=== PATIENT | female | born 1965 | race Caucasian/White ===

== ENCOUNTER 2017-09-25 15:53 | Observation (INO) | payer OTHER, BC ==
[~2017-09-25] VITALS: Ht 160 cm; Wt 112.3 kg
[~2017-09-25 15:53] MED LIST: ADVAIR 500/501 DISK IH; ALBUTEROL17 GM IH; ALBUTEROL2.5 MG/3 M IU; AMBIEN5 M1 PO; AMBIEN5 MG PO; ASPIRIN E.C.81 M1 PO; ASPIRIN325 MG PO; AVAPRO150 MG PO; Ambien PO; Ascorbic Acid,Ester- PO; BAYER CHILDREN'81 MG PO; CALCIUM600 MG PO; CELEBREX200 MG PO; CLARINEX5 MG PO; COUMADIN1 MG PO; CYANOCOBALAM1000 MCG SL; Coumadin,Jantoven PO; DESYREL100 MG PO; Desyrel PO; ERGOCALCIF50000 UNIT PO; FEOSOL325 MG PO; FLINTSTONES1 TABLET PO; GLUCOSAMINE 1,1 EACH PO; Glucosamine/Chondroi PO; HYDROCODONE/AP1 EACH PO; JUBLIA4 ML TP; LIDODERM 5% P1 PATCH TD; LYRICA50 MG PO; LYRICA75 MG PO; METOPROLOL SUCC25 MG PO; Martinic PO; NEXIUM20 MG PO; NEXIUM40 MG PO; OMNARIS12.5 GM NS; ONE-A-DAY ESSE1 EACH PO; OS-CAL 500+D T1 EAC1 PO; OXYCODONE HCL5 M1 PO; PATANOL OP; PATANOL OP100 DROP/5 BOTH EYES; PATANOL5 ML BOTH EYES; POTASSIUM-9999 MG PO; PROAIR HFA8.5 GM IH; PROVENTIL,2.5 MG/3 M IH; Percocet 5/325,Endoc PO; Proventil,Ventolin H IH; RESUME HOME MEDS; Rugrats,Centrum Kids PO; SERTRALINE HCL100 MG PO; SINGULAIR10 MG PO; Senokot S,Pericolace PO; Singulair PO; TRAZODONE HCL100 MG PO; TRAZODONE HCL50 MG PO; Tylenol Regular Stre PO; VITAMIN B COMP1 EACH PO; VITAMIN C500 M1 PO; Vicodin,Lortab 5/500 PO; Vitamin D, Drisdol PO; WELCHOL625 MG PO; ZINC CHELATED50 M1 PO; ZINC SULFATE220 MG PO; Zinc Gluconate PO; Zoloft PO; [UNRECOGNIZED DRUG - OTHER] PO; [UNRECOGNIZED DRUG - OTHER] TP
[2017-09-25 16:39] LABS: HEMATOCRIT 37.7 % (36.0-46.0); MCH 26.9 PG (29.0-34.0); MCHC 31.8 G/DL (30.0-36.0); MCV 84.5 FL (83-99); PLATELET COUNT 284 K/uL (156-360); RBC DIS.WIDTH-CV 15.3 % (11.8-14.6); RBC DIS.WIDTH-SD 47.6 % (39-53); RED BLOOD COUNT 4.46 M/uL (3.80-5.20); WHITE BLOOD COUNT 8.8 K/uL (4.1-10.2)
[2017-09-25 16:48] LABS: CHLORIDE 104 mEq/L (99-109); POTASSIUM 4.7 mEq/L (3.7-5.4); SODIUM 140 mEq/L (136-147)
[2017-09-25 16:50] LABS: GLUCOSE 97 mg/dL (70-99)
[2017-09-25 16:53] LABS: CREATININE 0.8 mg/dL (0.6-1.3); GFR ESTIMATE (CALCULATED) > 59 mL/min/
[2017-09-25 16:54] LABS: UREA NITROGEN (BUN) 16 mg/dL (9-23)
[2017-09-25 17:01] LABS: TROP-I INTERPRETATION NEGATIVE; TROPONIN-I < 0.01 ng/mL (0.0-0.30)
[2017-09-25] MEDS ORDERED: ATARAX10 MG PO (18:20)
[2017-09-25] MEDS ORDERED: HYDROCODON-ACE1 EAC7 PO (18:20)
[2017-09-25] MEDS ORDERED: MELOXICAM15 MG PO (18:20)
[2017-09-25] MEDS ORDERED: PREDNISONE10 MG PO (18:21)
[2017-09-25] MEDS ORDERED: CLEOCIN300 MG PO (18:21)
[2017-09-25] MEDS ORDERED: ZANTAC300 MG PO (18:22)
[2017-09-25] MEDS ORDERED: SPIRIVA RESPIMAT4 GM IH (18:22)
[2017-09-25] MEDS ORDERED: PHENERGAN-CODE120 ML PO (18:22)
[2017-09-25 20:48] VITALS: BP 143/86
[2017-09-26 00:30] VITALS: BP 130/69
[2017-09-26 00:50] LABS: TROP-I INTERPRETATION NEGATIVE; TROPONIN-I < 0.01 ng/mL (0.0-0.30)
[2017-09-26 04:48] VITALS: BP 164/78
[2017-09-26 07:06] LABS: HEMATOCRIT 38.8 % (36.0-46.0); HEMOGLOBIN 11.9 G/DL (11.9-15.5); MCH 25.8 PG (29.0-34.0); MCHC 30.7 G/DL (30.0-36.0); MCV 84.2 FL (83-99); NRBC (%) 0.7 /100 WBC (0-0); PLATELET COUNT 285 K/uL (156-360); RBC DIS.WIDTH-CV 15.3 % (11.8-14.6); RBC DIS.WIDTH-SD 46.9 % (39-53); RED BLOOD COUNT 4.61 M/uL (3.80-5.20); WHITE BLOOD COUNT 5.9 K/uL (4.1-10.2)
[2017-09-26 07:27] LABS: CHLORIDE 107 MEQ/L (99-109); CREATININE 0.8 MG/DL (0.6-1.3); GFR ESTIMATE (CALCULATED) > 59 mL/min/; POTASSIUM 5.5 MEQ/L (3.7-5.4); SODIUM 141 MEQ/L (136-147); UREA NITROGEN (BUN) 14 mg/dL (9-23)
[2017-09-26 07:28] LABS: TROP-I INTERPRETATION NEGATIVE; TROPONIN-I < 0.01 ng/mL (0.0-0.30)
[2017-09-26 07:44] LABS: GLUCOSE 175 mg/dL (70-99)
[2017-09-26 09:00] VITALS: BP 132/84
[2017-09-26 13:29] VITALS: BP 163/69
== END 2017-09-26 14:27 | disposition home or self-care (01) ==
LOC: EME 15:53 → EDOF 17:43 → ENRESERV 17:48 → 4SOUTH 20:37
PROVIDERS: Hospitalist
DX: R07.89 Other chest pain (principal); E66.01 Morbid (severe) obesity due to excess calories; G47.30 Sleep apnea, unspecified; I25.10 Atherosclerotic heart disease of native coronary artery without angina pectoris; I34.0 Nonrheumatic mitral (valve) insufficiency; I45.10 Unspecified right bundle-branch block; J44.1 Chronic obstructive pulmonary disease with (acute) exacerbation; Z98.84 Bariatric surgery status; Z87.11 Personal history of peptic ulcer disease; Z96.653 Presence of artificial knee joint, bilateral; I10 Essential (primary) hypertension; E11.9 Type 2 diabetes mellitus without complications; Z82.49 Family history of ischemic heart disease and other diseases of the circulatory system; Z68.41 Body mass index [BMI] 40.0-44.9, adult; Z88.1 Allergy status to other antibiotic agents; Z88.2 Allergy status to sulfonamides; Z79.82 Long term (current) use of aspirin
CPT/HCPCS: 71046; 80048; 84484; 85027; 93005; 94640; 94640 76; 94760; 99202; 99281; 99285; G0378; J1650; J2930; J7512